=== PATIENT | female | born 1975 | race Caucasian/White ===

== ENCOUNTER 2016-12-24 19:14 | Inpatient (IN) | payer MEDICAID ==
--- NOTE | ~2016-12-24 | HP ---
Unit #: [id number] #: [id number] Patient: TRACEY GUTIÉRREZ [id number] [place] [address] [id number] I MR#: [id number] NAME: TRACEY GUTIÉRREZ ROOM: P202 Age: 41 Sex: F Admission Date: 12/24/2016 : 1975 Attending Physician: Lance Diana M.D. Admitting Physician: Lance Diana M.D. Primary Care Physician: Primary Care Physician No HISTORY AND PHYSICAL HISTORY OF PRESENT ILLNESS Tracey is a 41 year old admitted to [address] [place] [address] because her drug use. She snorts heroin. PAST MEDICAL HISTORY Long history of opioid abuse to include snorting heroin PAST SURGICAL HISTORY 1. Tubal ligation. 2. Right shoulder. 3. Low back. ALLERGIES No known drug allergies. SOCIAL HISTORY Smokes greater than one pack per day. Denies alcohol. Admits to a long history of opioid abuse to include snorting heroin. FAMILY HISTORY Medically noncontributory. REVIEW OF SYSTEMS CONSTITUTIONAL: No fever or chills. HEENT: Denies any sore throat, ear pain or runny nose. CARDIOVASCULAR: Denies chest pain, irregular heart rhythm or palpitations. CHEST: Denies shortness of breath or cough. No hemoptysis. GASTROINTESTINAL: Denies nausea, vomiting, diarrhea or chronic constipation. ENDOCRINE: Denies history of increased thirst or urination. No recent significant weight loss or gain. GENITOURINARY: Denies dysuria, frequency, or hematuria. SKIN: Denies any rashes. HEMATOLOGIC: Denies history of increased bleeding or bruising. MUSCULOSKELETAL: Denies any hot, swollen joints. No generalized muscle pain. NEUROLOGIC: Denies problems with vision or speech. No frequent, severe headaches. No numbness, tingling or weakness in any extremities. Denies loss of bladder or bowel control. CURRENT MEDICATIONS Detox protocol Unit #: [id number] #: [id number] Patient: TRACEY GUTIÉRREZ PHYSICAL EXAMINATION GENERAL: Alert, well-nourished, in no apparent distress. VITAL SIGNS: Blood pressure 120/70, heart rate 80, respirations 16, temperature 98.6. WEIGHT: 127 pounds. HEIGHT: 5'9". SKIN: Warm and dry without rash or lesion. HEENT: Normocephalic. TMs not viewed. Oral and nasal passages clear. Conjunctivae clear. Pupils equal, round and reactive to light and accommodation. Extraocular movements intact. NECK: Supple without lymphadenopathy or thyromegaly. HEART: Regular rate and rhythm without murmur. LUNGS: Clear. ABDOMEN: Soft, nontender. : Not done. EXTREMITIES: No evidence of cyanosis, clubbing or edema. Moves all extremities without focal deficit. NEUROLOGICAL: Grossly within normal limits. Cranial Nerves: II: Visual peck are intact. III, IV AND : Extraocular movements are intact. Pupils are equal, round and reactive to light. V: Facial sensation is grossly normal. VII: Facial movements and expression are normal. VIII: Auditory acuity grossly intact. IX, X: Uvula is midline. Phonation is normal. XI: Patient shrugs shoulders and turns head normally. XII: Tongue protrudes in the midline. Sensory and Motor Function: Sensory and motor sensation is grossly normal. Motor: moves all extremities well. Coordination: Gait is normal. Deep Tendon Reflexes: Intact. IMPRESSION Psychiatric admission RECOMMENDATIONS PSYCHIATRIC: Per psychiatrist. MEDICAL: I see no contraindications to participating in facility's activities. MEDICAL PROGNOSIS Good. MEDICAL CONDITION Stable. Dictated by... Verenice Dee PJenniferAJennifer-Ben. for Edis Nixon/dorina TD: 12/26/2016 04:48 JOB #: [id number] Unit #: [id number] #: [id number] Patient: TRACEY GUTIÉRREZ HISTORY AND PHYSICAL Page 1 of 1 X Verenice Dee HISTORY AND PHYSICAL
--- NOTE | ~2016-12-24 | DS ---
Unit #: [id number] #: [id number] Patient: TRACEY GUTIÉRREZ [id number] [facility] [address] [place] [address] [id number] I MR#: [id number] NAME: TRACEY GUTIÉRREZ ROOM: [facility] Age: 41 Sex: F Admission Date: 12/24/2016 : 1975 Discharge Date: 12/26/2016 Attending Physician: Lance Diana M.D. Primary Care Physician: Primary Care Physician No DISCHARGE SUMMARY REASON FOR ADMISSION The patient is a 41-year-old white female, admitted to the [address] [place] [address] for opioid detox. HOSPITAL COURSE The patient was admitted to [address] [place] [address] and placed on routine detoxification protocol for opioids. Her stay in the hospital was a brief and an uneventful one. By 12/26/2016, the patient was in bright spirits and exhibited no signs or symptoms of withdrawal. She requested discharge, it was so ordered. The patient was instructed to contact this facility regarding the results of pending HIV and hepatitis testing. FINAL DIAGNOSIS Opioid use disorder. DISPOSITION ON DISCHARGE The patient is discharged on no psychotropic or other medications. FOLLOWUP Followup will take place through the auspices of community mental health resources in the [place], [place] area. PROGNOSIS The patient's prognosis is considered good. Dictated by... Lance Diana M.D. ZIYAD/tasia TD: 12/27/2016 08:29 JOB #: [id number] Unit #: [id number] #: [id number] Patient: TRACEY GUTIÉRREZ DISCHARGE SUMMARY Page 1 of 1 X Lance Diana MD X DISCHARGE SUMMARY
--- NOTE | ~2016-12-24 | A ---
[facility] Nutrition Therapy DATE: 12/26/16 Patient: TRACEY MARLA Physician: BHAVESH Address: [address] Room/Bed: [address], Zip: [place] [address] Admit Date: 12/24/16 Date of : [birth year] Height: 5 9 Weight: [phone] NUTRITIONAL ASSESSMENT: REASON: LOW BMI (18.8) PATIENT ADMITTED FOR SI AND HEROIN DETOX PMH: NONE Anthropometrics: HT: 69", WT: 127#, BMI: 18.8, %IBW: 88 Labs: 12/25/16- GLU: 126 Meds: DETOX PROTOCOL, MVI Assessment: PATIENT IS A 41 Y/O FEMALE ADMITTED FOR SI AND HEROIN DETOX. PATIENT IS CURRENTLY UNEMPLOYED, LIVES WITH HER BOYFRIEND, SMOKES 2 PPD, HAS DAILY HEROIN AND MARIJUANA USE, FREQUENT PERCOCET AND XANAX USE, AND A HX OF COCAINE USE. UPON ADMIT PATIENT STATED A POOR APPETITE WITH A 10# WEIGHT LOSS OVER THE LAST SEVERAL MONTHS. NURSING REPORTS GOOD PO INTAKES. THERE IS NO WEIGHT HX IN MEDITECH. THERE ARE NO SKIN OR GI ISSUES NOTED ATT. PATIENT IS ON A REGULAR DIET. THIS RD SUSPECTS WEIGHT AND APPETITE WILL STABILIZE AND POSSIBLY INCREASE FOLLOWING DETOX. PATIENT DID NOT SCORE ANY NUTRITIONAL RISK POINTS. Dx: INADEQUATE NUTRIENT INTAKE R/T CURRENT CONDITION, DETOX AEB SLEF- REPORTED WEIGHT LOSS AND DECREASED APPETITE, LOW BMI Intervention: REGULAR DIET, MEDS PER MD, DETOX, PSYCH Monitoring, Evaluation and Goals: 1. ADEQUATE PO INTAKES >50% OF MEALS 2. PREVENT, CORRECT MICRO/MACRO NUTRIENT DEFICIENCIES MONITOR: WEIGHTS, LABS, PO/FLUID INTAKES Recommendations: 1. CONTINUE REGULAR DIET TOLERATED. OFFER SNACKS BETWEEN MEALS. IF PATIENT HAS C/O HUNGER PLEASE ORDER LARGE PORTIONS AND RD WILL APPROVE 2. ENCOURAGE ADEQUATE PO AND FLUID INTAKES 3. OBTAIN WEIGHTS ROUTINELY (EVERY 3-4 DAYS) 4. IF PO INTAKES ARE BELOW 50% OF MEALS PLEASE ORDER ENSURE BID TO PROMOTE ADEQUATE KCAL AND PROTEIN INTAKES [facility] Nutrition Therapy DATE: 12/26/16 Patient: TRACEY MARLA Physician: BHAVESH Address: [address] Room/Bed: [address], Zip: [place] [address] Admit Date: 12/24/16 Date of : [birth year] Height: 5 9 Weight: [phone] TO F/U PER PROTOCOL AND PRN R/T PATIENT MILDLY COMPROMISED Respectfully, MAURICIO PORTILLO, RD, LD [facility] Nutrition[facility] Services [facility] cc: client file
--- NOTE | ~2016-12-24 | PA ---
Unit #: [id number] #: [id number] Patient: TRACEY GUTIÉRREZ [id number] [place] [address] [id number] I MR#: [id number] NAME: TRACEY GUTIÉRREZ ROOM: P202 Age: 41 Sex: F Admission Date: 12/24/2016 : 1975 Date of Assessment: 12/25/2016 Attending Physician: Lance Diana M.D. Admitting Physician: Lance Diana M.D. Primary Care Physician: Primary Care Physician No PSYCHIATRIC ASSESSMENT IDENTIFYING INFORMATION The patient is a 41-year-old white female admitted for opioid dependence and suicidal ideation. CHIEF COMPLAINT None given. INFORMANT Chart, the patient cannot be aroused for interview. HISTORY OF PRESENT ILLNESS The patient is a 41-year-old white female admitted to [address] [place] [address] with a history of increasing opioid use as well as suicidal ideation. The patient reports because of recent relapse she is having suicidal ideation with plan to overdose. She reports that she intentionally overdosed approximately five months ago but "woke up on my own." The patient denies abuse of psychoactive substances apart from intravenous heroine. When seen today the patient is sleeping soundly and cannot be aroused for interview. PAST PSYCHIATRIC HISTORY As above. The patient denies prior chemical dependence or other psychiatric treatment. PAST MEDICAL HISTORY Noncontributory. MEDICATIONS None. ALLERGIES None. FAMILY HISTORY Noncontributory. SOCIAL HISTORY The patient reports substance use noted previously and is a smoker. MENTAL STATUS EXAMINATION At this time reveals the patient to be a soundly sleeping white female attempts to arouse the patient are unsuccessful. The patient's assets to be assessed. Liabilities lack of resources, diagnosis of opioid disorder, Unit #: [id number] #: [id number] Patient: TRACEY GUTIÉRREZ dysthymic disorder. TREATMENT PLAN The patient remains hospitalized for safety and stabilization. At this point she has been placed on a routine detoxification protocol for opioids. We will consider initiation of antidepressant medication as the patient's symptoms may dictate and suicidal precautions remain in place. ESTIMATED LENGTH OF STAY Three to five days. Dictated by... Lance Diana M.D. CB/dorina TD: 12/26/2016 02:42 JOB #: [id number] PSYCHIATRIC ASSESSMENT Page 1 of 1 X Lance Diana MD PSYCHIATRIC ASSESSMENT
[2016-12-25 12:29] LABS: BASOPHIL% 0.6 % (0-2.5); EOSINOPHIL# 0.4 X10e3 (0-0.7); EOSINOPHIL% 5.4 % (0.0-7.0); HEMATOCRIT 32.7 % (35.0-45.0); HEMOGLOBIN 9.9 gm/dL (12.0-16.0); LYMPHOCYTE# 1.4 X10e3 (1.0-3.5); LYMPHOCYTE% 19.1 % (17.0-45.0); MEAN CELL VOLUME 69.1 FL (83-96); MEAN CORPUSCULAR HGB CONC 30.4 g/dL (30-36); MEAN PLATELET VOLUME 7.4 FL (6.5-11.5); MONOCYTE# 0.4 X10e3 (0-1.0); MONOCYTE% 6.1 % (3.0-12.0); NEUTROPHIL# 4.9 X10e3 (1.5-7.1); NEUTROPHIL% 68.8 % (40-75); PLATELET COUNT 277 X10e3 (140-420); RED BLOOD COUNT 4.73 X10e (3.90-5.30); RED CELL DISTRIBUTION WIDTH 18.7 % (11.0-15.5); WHITE BLOOD COUNT 7.1 X10e3 (4.0-10.5)
[2016-12-25 12:33] LABS: DIFF IND NO
[2016-12-25 12:40] LABS: ALBUMIN SERUM 4.3 g/dL (3.5-5.0); BILIRUBIN,TOTAL 0.9 mg/dL (0.2-2.0); BUN/CREATININE RATIO 14.28; CALCIUM SERUM 9.6 mg/dL (8.4-10.2); CREATININE SERUM 0.7 mg/dL (0.6-1.4); GLOM FILT RATE Estimated 108.4 mL/min (>60); PROTEIN TOTAL SERUM 6.8 g/dL (6.0-8.3)
[2016-12-28 08:29] LABS: HA AB IGM (HEPPAN) Nonreactive (()); HB CORE AB IGM (HEPPAN) Nonreactive (Nonreactive); HB S AG (HEPPAN) Nonreactive (Nonreactive); HEP C AB (HEPPAN) Nonreactive (Nonreactive); HEP C AB SIGNAL TO CUTOFF 0.02 ratio (<1.00)
== END 2016-12-26 18:40 | disposition home or self-care (01) | DRG 897 ==
LOC: P2S 21:49
PROVIDERS: Specialist
PROC: HZ2ZZZZ Detoxification Services for Substance Abuse Treatment (ICD-10-PCS; principal; 2016-12-24)
DX: F11.20 Opioid dependence, uncomplicated (principal); F17.210 Nicotine dependence, cigarettes, uncomplicated
CPT/HCPCS: 80053; 80074; 84703; 85025; 86592; 87806